=== PATIENT | female | born 1965 | race American Indian/Alaskan Native ===

== ENCOUNTER 2017-05-25 02:23 | Emergency (ER) | payer MEDICARE ==
[2017-05-25 02:24] VITALS: BMI 38.0
[2017-05-25 03:02] VITALS: O2SAT 98
[2017-05-25 04:04] LABS: BASO % 0.6 % (0.0-2.0); EOS # 0.3 K/uL (0.0-0.7); EOS % 6.4 % (0.0-4.0); HEMOGLOBIN 12.8 g/dL (12.0-16.0); LYMPH # 1.8 K/uL (1.0-4.3); LYMPH % 43.4 % (20.0-40.0); MEAN CELL VOLUME 97.8 fl (81.0-99.0); MEAN CORPUSCULAR HEMOGLOBIN 34.8 pg (27.0-31.0); MEAN CORPUSCULAR HGB CONC 35.6 g/dL (33.0-37.0); MEAN PLATELET VOLUME 7.6 fl (7.2-11.7); MONO # 0.4 K/uL (0.0-0.8); MONO % 8.9 % (0.0-10.0); NEUT # 1.6 K/uL (1.8-7.0); NEUT % 40.7 % (50.0-75.0); NRBC % 0.1 % (0.0-0.0); RBC 3.67 Mil/uL (3.80-5.20); RED CELL DISTRIBUTION WIDTH 12.4 % (11.5-14.5)
[2017-05-25 04:07] LABS: BLOOD UREA NITROGEN 16 mg/dl (7-17); CALCIUM 9.3 mg/dL (8.4-10.2); GFR AFRICAN-AMERICAN > 60; GFR NON-AFRICAN AMERICAN > 60
--- NOTE | 2017-05-25 05:07 | ED PDOC ---
HPI: Chest Pain Time Seen by Provider: 05/25/17 02:48 Chief Complaint (Nursing): Chest Pain Chief Complaint (Provider): chest pain History Per: Patient History/Exam Limitations: no limitations Onset/Duration Of Symptoms: Hrs (one hour prior to arrival) Current Symptoms Are (Timing): Better Additional Complaint(s): Ghazala Chandler, a 51 y/o homeless female with a past medical history of asthma and hypertension presents to the ED complaining of chest pain onset one hour ago prior to arrival. She reports she started to feel pain while on the train. Patient was hospitalized at [facility] and her reports presented negative catheterization. Denies nausea, vomiting, or diaphoresis. Of note: patient smokes 2 cigarettes a day. PMD: Clarissa Fontana Past Medical History Reviewed: Historical Data, Nursing Documentation, Vital Signs Vital Signs: Last Vital Signs Temp 98.2 F 05/25/17 06:38 Pulse 82 05/25/17 06:38 Resp 18 05/25/17 06:38 BP 135/79 05/25/17 06:38 Pulse Ox 98 05/25/17 06:38 - Medical History PMH: Anxiety, Asthma, Bronchitis, Depression, HTN, Hypercholesterolemia, Peripheral Edema (ble +1 pitting) Denies: Chronic Kidney Disease - Surgical History Surgical History: No Surg Hx - Family History Family History: States: Unknown Family Hx - Social History Current smoker - smoking cessation education provided: Yes (2 cigarettes daily) - Immunization History Hx Tetanus Toxoid Vaccination: Yes Hx Influenza Vaccination: No Hx Pneumococcal Vaccination: No - Home Medications Home Medications: Ambulatory Orders Medication Instructions Recorded Aspirin [Ecotrin] 81 mg PO DAILY #30 09/01/16 Multimineral/Multivitamin 1 tab PO DAILY #30 tab 09/01/16 [Therapeutic-M Tab] Pantoprazole [Protonix EC Tab] 40 mg PO DAILY #30 ect 09/01/16 amLODIPine [Norvasc] 5 mg PO DAILY 30 Days tab 03/24/17 Albuterol HFA [Ventolin HFA 90 2 puff IH [id number] #1 puff 05/20/17 mcg/actuation (8 g)] Azithromycin [Zithromax] 250 mg PO DAILY 3 Days #3 tab 05/20/17 Budesonide/Formoterol Fumarate 2 puff IH DAILY #1 hfa.aer.ad 05/20/17 [Symbicort 160-4.5 Mcg Inhaler] guaiFENesin/Dextromethorphan 5 ml PO Q4H PRN #1 bottle 05/20/17 [Robitussin DM] - Allergies Allergies/Adverse Reactions: Allergies Allergy/AdvReac Type Severity Reaction Status Date / Time No Known Allergies Allergy Verified 01/19/17 00:49 Review of Systems ROS Statement: Except As Marked, All Systems Reviewed And Found Negative Constitutional: Negative for: Sweats Cardiovascular: Positive for: Chest Pain Gastrointestinal: Negative for: Nausea, Vomiting Physical Exam - Reviewed Nursing Documentation Reviewed: Yes Vital Signs Reviewed: Yes - Physical Exam Appears: Positive for: Well, Non-toxic, No Acute Distress Head Exam: Positive for: ATRAUMATIC, NORMAL INSPECTION, NORMOCEPHALIC Skin: Positive for: Normal Color, Warm, Dry Eye Exam: Positive for: EOMI, Normal appearance, PERRL ENT: Positive for: Normal ENT Inspection Neck: Positive for: Normal, Painless ROM, Supple. Negative for: Decreased ROM Cardiovascular/Chest: Positive for: Regular Rate, Rhythm. Negative for: Murmur Respiratory: Positive for: Normal Breath Sounds. Negative for: Decreased Breath Sounds, Wheezing, Respiratory Distress Gastrointestinal/Abdominal: Positive for: Normal Exam, Bowel Sounds, Soft. Negative for: Tenderness Back: Positive for: Normal Inspection. Negative for: L CVA Tenderness, R CVA Tenderness Extremity: Positive for: Normal ROM. Negative for: Tenderness, Pedal Edema, Deformity Neurologic/Psych: Positive for: Alert, Oriented (x3) - Laboratory Results Result Diagrams: 05/25/17 03:55 05/25/17 03:55 - ECG O2 Sat by Pulse Oximetry: 98 (RA) Pulse Ox Interpretation: Normal Medical Decision Making Medical Decision Making: Time: 03:30 Initial Impression: 51 y/o female with chest pain and negative catheterization Initial Plan: --EKG --BMP --Drug Screen --Troponin I --CBC --Reevaluation Chest pain has resolved. Clinical Impression: Atypical Chest Pain Upon provider evaluation patient is medically stable, and requires no further treatment in the ED at this time. Patient will be discharged. Counseling was provided and all questions were answered regarding diagnosis and need for follow up with PMD. Documented by Maria Eugenia Harris acting as a scribe for Joe Gil MD. All medical record entries made by the Scribe were at my direction and personally dictated by me. I have reviewed the chart and agree that the record accurately reflects my personal performance of the history, physical exam, medical decision making, and the department course for this patient. I have also personally directed, reviewed, and agree with the discharge instructions and disposition. Disposition - Clinical Impression Clinical Impression: Atypical chest pain - Patient ED Disposition Is Patient to be Admitted: No - Disposition Referrals: Clarissa Fontana MD [Primary Care Provider] - Disposition: Routine/Home Disposition Time: 04:30 Condition: GOOD Instructions: Chest Pain That Is Not Caused by the Heart (DC) Forms: [employer] (Welsh)
[2017-05-25 06:40] VITALS: BP 135/79; PULSE 82; RESP 18; TEMP 98.2
--- NOTE | 2017-05-25 23:11 | CARD ---
APPROVED REPORT EKG Measurement Heart [id number] VT [id number] <Conclusion> Normal sinus rhythm Minimal voltage criteria for LVH, may be normal variant Nonspecific T wave abnormality Prolonged QT Abnormal ECG
== END 2017-05-25 06:32 | disposition home or self-care (01) ==
LOC: H.ER 02:23
DX: R07.89 Other chest pain (principal); E78.00 Pure hypercholesterolemia, unspecified; F17.210 Nicotine dependence, cigarettes, uncomplicated; F32.9 Major depressive disorder, single episode, unspecified; F41.9 Anxiety disorder, unspecified; I10 Essential (primary) hypertension; Z59.0 Homelessness; Z79.82 Long term (current) use of aspirin; J45.909 Unspecified asthma, uncomplicated